=== PATIENT | male | born 1980 | race Caucasian/White ===

== ENCOUNTER 2020-04-01 11:03 | Emergency (ER) | payer OTHER ==
[~2020-04-01] VITALS: Ht 177.8 cm; Wt 97.3 kg
[2020-04-01] MEDS ORDERED: normal saline 1000ML IV soln IVB ONE (12:30)
[2020-04-01] MEDS ORDERED: glucagon, human recombinant 1mg kit IV ONE (12:30)
[2020-04-01] MEDS ORDERED: LORazepam 2 mg/ml vial IV ONE (12:30)
[2020-04-01 12:53] LABS: BASOPHILS % (AUTO) 0.4 % (0-1); EOSINOPHILS % (AUTO) 0.6 % (0-6); HEMATOCRIT 51.6 % (42.0-52.0); HEMOGLOBIN 17.2 g/dl (14.0-17.9); LYMPHOCYTES # (AUTO) 1.3 X10'3 (1.1-4.8); LYMPHOCYTES % (AUTO) 15.6 % (21-51); MEAN CORPUSCULAR HEMOGLOBIN 29.4 PG (27.0-31.0); MEAN CORPUSCULAR HGB CONC 33.4 g/dL (33.0-36.5); MEAN CORPUSCULAR VOLUME 88.1 FL (78-98); MONOCYTES # (AUTO) 0.6 X10'3 (0-0.9); MONOCYTES % (AUTO) 7.1 % (2-12); NEUTROPHILS # (AUTO) 6.4 X10'3 (1.8-7.7); NEUTROPHILS % (AUTO) 76.3 % (42-75); PLATELET COUNT 262 X10'3 (140-440); RED BLOOD COUNT 5.85 X10'6 (4.70-6.10); RED CELL DISTRIBUTION WIDTH 13.5 % (11.5-14.5); WHITE BLOOD COUNT 8.4 X10'3 (4.5-11.0)
[2020-04-01 13:04] LABS: ALANINE AMINOTRANSFERASE 55 U/L (12-78); ALBUMIN 4.3 G/DL (3.4-5.0); ALBUMIN/GLOBULIN RATIO 1.2 (1.1-1.5); ALKALINE PHOSPHATASE 93 IU/L (46-116); ANION GAP 8 (8-16); ASPARTATE AMINO TRANSFERASE 25 U/L (10-37); BILIRUBIN,TOTAL 0.6 MG/DL (0.1-1.0); BLOOD UREA NITROGEN 9 MG/DL (7-18); BUN/CREATININE RATIO 10.7 (5.4-32.0); CALCIUM 9.3 MG/DL (8.5-10.1); CHLORIDE 105 MMOL/L (99-107); CREATININE 0.84 MG/DL (0.60-1.10); GLUCOSE 91 MG/DL (70-104); POTASSIUM 4.6 MMOL/L (3.5-5.1); SODIUM 141 MMOL/L (135-145); TOTAL CARBON DIOXIDE 28.3 MMOL/L (24-32); TOTAL PROTEIN 7.9 G/DL (6.4-8.2); eGFR > 90 ML/MIN
[2020-04-01] MEDS ORDERED: LIDOcaine Viscous 15ml cup ONE (14:45)
[2020-04-01] MEDS ORDERED: fentaNYL/PF 50MCG/1 ML 2ML syringe ONE (14:45)
[2020-04-01] MEDS ORDERED: MIDAZolam 5mg/5ml vial ONE (14:45)
--- NOTE | 2020-04-01 14:50 | NUR ---
Spoke with GI lab. They will be coming to get patient within the hour.
[2020-04-01 15:09] VITALS: BP 141/81
[2020-04-01 17:53] VITALS: BP 124/68
[2020-04-01 18:03] VITALS: BP 131/72
[2020-04-01 18:13] VITALS: BP 123/61
[2020-04-01 18:23] VITALS: BP 136/68
[2020-04-01] MEDS ORDERED: PANT-47 PO (18:40)
[2020-04-01 19:05] VITALS: BP 120/78
== END 2020-04-01 19:09 | disposition home or self-care (01) ==
LOC: ER 11:04
DX: T18.108A Unspecified foreign body in esophagus causing other injury, initial encounter (principal); R10.13 Epigastric pain; Z79.2 Long term (current) use of antibiotics; Z79.899 Other long term (current) drug therapy; X58.XXXA Exposure to other specified factors, initial encounter; Y93.89 Activity, other specified; Y92.89 Other specified places as the place of occurrence of the external cause; Y99.8 Other external cause status
CPT/HCPCS: 36415; 43239; 71045; 80053; 85025; 93005; 96361; 96374; 96375; 99285; J1610; J2060; J2250; J3010; J7030; J7040; 99152; A4620